=== PATIENT | female | born 1965 | race Caucasian/White ===

== ENCOUNTER 2023-06-02 09:31 | Emergency (ER) | payer OTHER ==
[2023-06-02] MEDS ORDERED: fentaNYL 100 MCG/2 ML SDV IVPUSH ONE (10:05)
[2023-06-02] MEDS ORDERED: Sodium Chloride 0.9% 10 ML Syringe FLUSH PRN (10:05)
[2023-06-02] MEDS ORDERED: Sodium Chloride 0.9% 1,000 ML IV SCH (10:15)
[2023-06-02] MEDS ORDERED: Sodium Chloride 0.9% 10 ML SDV FLUSH ONE (10:21)
[2023-06-02] MEDS ORDERED: Iopamidol 612 MG/ML 100 ML Bottle IV PRN (10:21)
[2023-06-02] MEDS ORDERED: Sodium Chloride 0.9% 100 ML IV SCH (10:30)
== END 2023-06-02 12:19 | disposition home or self-care (01) ==
LOC: JP.ED 09:31
DX: S20.212A Contusion of left front wall of thorax, initial encounter (principal); S30.0XXA Contusion of lower back and pelvis, initial encounter; E03.9 Hypothyroidism, unspecified; Z72.0 Tobacco use; Z88.2 Allergy status to sulfonamides; Z79.899 Other long term (current) drug therapy; V49.10XA Passenger injured in collision with unspecified motor vehicles in nontraffic accident, initial encounter; Y92.410 Unspecified street and highway as the place of occurrence of the external cause
CPT/HCPCS: 71260; 74177; 96374; 99285; J3010; J3490; J7030; Q9967